=== PATIENT | male | born 1985 | race Caucasian/White ===

== ENCOUNTER → 2017-04-11 16:31 | Emergency (ER) | payer OTHER ==
[~2017-04-11 16:31] MED LIST: Ibuprofen TAB* 600 MG PO ONE
[2017-04-11 16:41] VITALS: BP 144/88
--- NOTE | 2017-04-11 17:58 | RAD ---
INDICATION: Left ankle injury. TECHNIQUE: 3 views of the left ankle were obtained. FINDINGS: Soft tissue swelling is noted along the anterolateral aspect of the ankle. No fracture is seen. Joint spaces appear maintained. IMPRESSION: SOFT TISSUE SWELLING, NO FRACTURE IS SEEN.
--- NOTE | 2017-04-11 17:58 | ED ---
Lower Extremity - HPI Summary HPI Summary: 31M presents with left ankle swelling and pain s/p rolling it in soccer. He is able to ambulate on it with pain. He denies any numbness or tingling. He has had previous sprains to this ankle just never this pain. He has not taken anything for pain. He has edema to the lateral side of her ankle. He inverted the ankle causing the injury. - History of Current Complaint Chief Complaint: EDExtremityLower Stated Complaint: LT ANKLE INJURY Time Seen by Provider: 04/11/17 16:47 Pain Intensity: 3 PMH/Surg Hx/FS Hx/Imm Hx Endocrine/Hematology History: Denies: Hx Anticoagulant Therapy Respiratory History: Denies: Hx Asthma Infectious Disease History: Denies: Traveled Outside the [place] in Last 30 Days - Family History Known Family History: Positive: Hypertension - Social History Alcohol Use: Occasionally Substance Use Type: Reports: None Smoking Status (MU): Never Smoked Tobacco Review of Systems Negative: Fever Negative: Chest Pain Negative: Shortness Of Breath Positive: Myalgia - left ankle All Other Systems Reviewed And Are Negative: Yes Physical Exam Triage Information Reviewed: Yes Vital Signs On Initial Exam: Initial Vitals Temp Pulse Resp BP Pulse Ox 99.5 F 100 18 144/88 100 04/11/17 16:38 04/11/17 16:38 04/11/17 16:38 04/11/17 16:38 04/11/17 16:38 Vital Signs Reviewed: Yes Appearance: Positive: Well-Appearing Skin: Positive: Warm, Dry Head/Face: Positive: Normal Head/Face Inspection Eyes: Positive: Normal, Conjunctiva Clear Respiratory/Lung Sounds: Positive: Clear to Auscultation, Breath Sounds Present Cardiovascular: Positive: Normal, RRR Musculoskeletal: Positive: Limited @ - left ankle due to swelling and pain, Edema Left - ankle lateral malleolus, Other - good pulses, capillary refill< 2 secs, able to wiggle toes Diagnostics - Vital Signs Vital Signs Temp Pulse Resp BP Pulse Ox 04/11/17 16:38 99.5 F 100 18 144/88 100 - Laboratory Lab Statement: Any lab studies that have been ordered have been reviewed, and results considered in the medical decision making process. - Radiology ankle Xray Interpretation: Positive (See Comments) - IMPRESSION: SOFT TISSUE SWELLING , NO FRACTURE IS SEEN. Radiology Interpretation Completed By: Radiologist Lower Extremity Course/Dx - Course Course Of Treatment: 31M presents with left ankle swelling and pain s/p rolling it in soccer. He is able to ambulate on it with pain. He has edema to the lateral side of her ankle. neurovascular intact. xray no fracture. willl treat with RICE. patient understands and agrees with plan - Diagnoses Differential Diagnosis/HQI/PQRI: Positive: Fracture (Closed), Sprain, Strain Provider Diagnoses: Left ankle injury Discharge - Discharge Plan Condition: Good Disposition: HOME Patient Education Materials: Ankle Sprain (ED) Referrals: Non Staff,Doctor [Primary Care Provider] - Additional Instructions: Stay off ankle as much as possible Ice, elevate, keep in NOEMY Ibuprofen every 6 hours for pain Follow up with primary if no improvement Return to ED if develop any numbness or tingling or any new or worsening symptoms
== END | disposition home or self-care (01) ==
LOC: ED 16:31
DX: S99.912A Unspecified injury of left ankle, initial encounter (principal); X50.9XXA Other and unspecified overexertion or strenuous movements or postures, initial encounter; Y93.66 Activity, soccer; Y92.9 Unspecified place or not applicable; Y99.9 Unspecified external cause status
CPT/HCPCS: 99282; A9270-GY